=== PATIENT | female | born 1945 | race Caucasian/White ===

== ENCOUNTER 2023-03-25 15:21 | Inpatient (IN) | payer MEDICARE, OTHER ==
[~2023-03-25] VITALS: Ht 157.5 cm; Wt 37.2 kg
[2023-03-25 16:21] LABS: Basophils # (auto) 0.1 10 ^3/uL (0-0.2); Basophils % (auto) 0.8 % (0.0-2.0); Eosinophils # (auto) 0 10 ^3/uL (0-0.8); Eosinophils % (auto) 0.3 % (0.0-7.0); Hematocrit 36.3 % (36.0-46.0); Hemoglobin 11.7 g/dL (12.2-16.2); Lymphocytes # (auto) 0.7 10 ^3/uL (0.4-5.4); Lymphocytes % (auto) 7.1 % (10.0-50.0); Mean Corpuscular Hemoglobin 28.2 pg (28.0-32.0); Mean Corpuscular Hgb Conc. 32.3 g/dL (32.0-36.0); Mean Corpuscular Volume 87.4 fL (80.0-100.0); Monocytes # (auto) 0.3 10 ^3/uL (0-1.3); Monocytes % (auto) 3.4 % (0.0-12.0); Neutrophils # (auto) 9.2 10 ^3/uL (1.6-8.6); Neutrophils % (auto) 88.4 % (37.0-80.0); Nucleated Red Blood Cells % 0.1 %; Red Blood Cells 4.15 10^6/uL (4.0-5.20); White Blood Cell 10.4 10^3/uL (4.4-10.8)
[2023-03-25 16:42] LABS: Alanine Aminotransferase 11 U/L (7-40); Albumin 4.5 g/dL (3.2-4.8); Alkaline Phosphatase 62 U/L (46-116); Aspartate Aminotransferase 15 U/L (13-40); BUN/Creatinine Ratio 29.1 (10.0-20.0); Blood Urea Nitrogen 59 mg/dL (9-23); Calcium 9.3 mg/dL (8.5-10.1); Chloride 97 mmol/L (98-107); Glucose 315 mg/dL (74-106); Potassium 4.3 mmol/L (3.5-5.1); Sodium 132 mmol/L (136-145)
[2023-03-25 16:43] LABS: Bilirubin, Total 0.7 mg/dL (0.2-1.0); Total Protein 7.3 g/dL (5.7-8.2)
[2023-03-25 19:25] VITALS: PULSE 82; RESP 16; O2SAT 99
[2023-03-25] MEDS ORDERED: DEXTROSE (50%) 50ML SYRG IV PRN (19:45)
[2023-03-25] MEDS: SODIUM CHLORIDE 0.9% 1,000 ML IV SCH (20:10)
[2023-03-25] MEDS: ACCU-CHEK COMFORT CURVE STRIP VI SCH (21:49)
[2023-03-25] MEDS: InsuLIN REG 1unit/0.01ml Soln (100units/ml) SC SCH (21:49)
[2023-03-25] MEDS: MELATONIN 5 MG TAB PO SCH (21:50)
[2023-03-26] MEDS: SODIUM CHLORIDE 0.9% 1,000 ML IV SCH ×3 (04:05→16:07)
[2023-03-26 05:59] LABS: Basophils # (auto) 0.1 10 ^3/uL (0-0.2); Basophils % (auto) 0.8 % (0.0-2.0); Eosinophils # (auto) 0.2 10 ^3/uL (0-0.8); Eosinophils % (auto) 2.6 % (0.0-7.0); Hematocrit 29.6 % (36.0-46.0); Lymphocytes # (auto) 1.5 10 ^3/uL (0.4-5.4); Lymphocytes % (auto) 19.8 % (10.0-50.0); Mean Corpuscular Hemoglobin 29.1 pg (28.0-32.0); Mean Corpuscular Hgb Conc. 33.7 g/dL (32.0-36.0); Mean Corpuscular Volume 86.2 fL (80.0-100.0); Monocytes # (auto) 0.5 10 ^3/uL (0-1.3); Neutrophils # (auto) 5.4 10 ^3/uL (1.6-8.6); Neutrophils % (auto) 69.8 % (37.0-80.0); Red Blood Cells 3.44 10^6/uL (4.0-5.20); Red Cell Distribution Width 14.7 % (11.8-14.3); White Blood Cell 7.8 10^3/uL (4.4-10.8)
[2023-03-26 06:02] LABS: Albumin 3.7 g/dL (3.2-4.8); Alkaline Phosphatase 48 U/L (46-116); Anion Gap 8.4 (5-15); Aspartate Aminotransferase 12 U/L (13-40); Bilirubin, Total 0.6 mg/dL (0.2-1.0); Calcium 8.5 mg/dL (8.7-10.4); Carbon Dioxide 22.6 mmol/L (20-30); Chloride 105 mmol/L (98-107); Glucose 78 mg/dL (74-106); Potassium 3.5 mmol/L (3.5-5.1); Sodium 136 mmol/L (136-145); Total Protein 6.3 g/dL (5.7-8.2)
[2023-03-26 06:09] LABS: Alanine Aminotransferase < 9 U/L (7-40); Blood Urea Nitrogen 45 mg/dL (9-23)
[2023-03-26] MEDS: ACCU-CHEK COMFORT CURVE STRIP VI SCH ×4 (06:50→22:58)
[2023-03-26] MEDS: InsuLIN REG 1unit/0.01ml Soln (100units/ml) SC SCH ×4 (06:51→22:00)
[2023-03-26 08:00] VITALS: PULSE 67; RESP 15; O2SAT 97
[2023-03-26] MEDS ORDERED: PANTOPRAZOLE 40 MG TAB PO SCH (10:00)
[2023-03-26] MEDS: ENOXAPARIN SOD 30 MG/0.3 ML SYRINGE SC SCH (10:10)
[2023-03-26 11:50] VITALS: PULSE 76; RESP 12; O2SAT 100
[2023-03-26 12:19] LABS: Urine Bacteria FEW /hpf (None Seen); Urine Blood Negative /uL (Negative); Urine Clarity HAZY (Clear); Urine Color Yellow (Yellow); Urine Protein, UAD TRACE (Negative); Urine Specific Gravity 1.019 (1.001-1.035); Urine Urobilinogen Normal (Negative); Urine WBC 9 /hpf (0 - 5)
[2023-03-26] MEDS ORDERED: SODIUM CHLORIDE 0.9% 1,000 ML IV SCH (15:00)
[2023-03-26] MEDS ORDERED: cefTRIAXone 1GM/50ML D5W 50 ML IV ONE (16:30)
[2023-03-26 17:41] LABS: INR 1.09 (0.9-1.15); Partial Thromboplastin Time 31.8 SEC (24.5-34.5); Prothrombin Time 11.4 sec (9.3-11.8)
[2023-03-26 18:30] VITALS: BP 116/65; PULSE 64; RESP 16; TEMP 98.1; O2SAT 100
[2023-03-26] MEDS ORDERED: IBUP200C14 PO (20:55)
[2023-03-26 22:00] VITALS: BP 101/65; PULSE 91; RESP 18; TEMP 97.2; O2SAT 96
[2023-03-26] MEDS: MELATONIN 5 MG TAB PO SCH (22:55)
[2023-03-27 05:00] VITALS: BP 109/64; PULSE 66; RESP 16; TEMP 97.4; O2SAT 97
[2023-03-27] MEDS: SODIUM CHLORIDE 0.9% 1,000 ML IV SCH ×2 (05:57→11:54)
[2023-03-27] MEDS: ACCU-CHEK COMFORT CURVE STRIP VI SCH ×4 (06:05→23:05)
[2023-03-27] MEDS: InsuLIN REG 1unit/0.01ml Soln (100units/ml) SC SCH ×4 (06:06→22:00)
[2023-03-27 07:00] LABS: Anion Gap 7.8 (5-15); Carbon Dioxide 21.2 mmol/L (20-30); Chloride 111 mmol/L (98-107); Potassium 3.2 mmol/L (3.5-5.1); Sodium 140 mmol/L (136-145)
[2023-03-27 07:01] LABS: Basophils # (auto) 0.1 10 ^3/uL (0-0.2); Basophils % (auto) 0.8 % (0.0-2.0); Calcium 8.2 mg/dL (8.7-10.4); Eosinophils # (auto) 0.2 10 ^3/uL (0-0.8); Eosinophils % (auto) 2.8 % (0.0-7.0); Hematocrit 29.8 % (36.0-46.0); Hemoglobin 9.9 g/dL (12.2-16.2); Lymphocytes # (auto) 1.5 10 ^3/uL (0.4-5.4); Lymphocytes % (auto) 17.3 % (10.0-50.0); Mean Corpuscular Hemoglobin 28.9 pg (28.0-32.0); Mean Corpuscular Hgb Conc. 33.1 g/dL (32.0-36.0); Mean Corpuscular Volume 87.3 fL (80.0-100.0); Monocytes # (auto) 0.6 10 ^3/uL (0-1.3); Monocytes % (auto) 7.4 % (0.0-12.0); Neutrophils # (auto) 6.1 10 ^3/uL (1.6-8.6); Neutrophils % (auto) 71.7 % (37.0-80.0); Nucleated Red Blood Cells % 0.1 %; Red Blood Cells 3.41 10^6/uL (4.0-5.20); Red Cell Distribution Width 14.7 % (11.8-14.3); White Blood Cell 8.4 10^3/uL (4.4-10.8)
[2023-03-27 07:06] LABS: Glucose 82 mg/dL (74-106)
[2023-03-27 07:07] LABS: BUN/Creatinine Ratio 26.3 (10.0-20.0)
[2023-03-27 07:17] LABS: Blood Urea Nitrogen 26 mg/dL (9-23)
[2023-03-27 08:00] VITALS: BP 115/70; PULSE 82; RESP 14; TEMP 98.5; O2SAT 99
[2023-03-27] MEDS ORDERED: POTASSIUM EFFERVESENT TAB 25 MEQ PO ONE (09:00)
[2023-03-27] MEDS: cefTRIAXone 1GM/50ML D5W 50 ML IV SCH (11:54)
[2023-03-27] MEDS: ENOXAPARIN SOD 30 MG/0.3 ML SYRINGE SC SCH (11:54)
[2023-03-27 12:00] VITALS: BP 130/64; PULSE 69; RESP 16; TEMP 98.1; O2SAT 100
[2023-03-27 16:00] VITALS: BP 110/59; PULSE 82; RESP 16; TEMP 98.7; O2SAT 100
[2023-03-27] MEDS ORDERED: CEPH250C PO (16:54)
[2023-03-27 19:36] VITALS: BP 115/62; PULSE 74; RESP 19; TEMP 98; O2SAT 100
[2023-03-27 22:00] VITALS: BP 110/58; PULSE 76; RESP 17; TEMP 98.4; O2SAT 100
[2023-03-27] MEDS: MELATONIN 5 MG TAB PO SCH (23:05)
[2023-03-28 05:00] VITALS: BP 127/77; PULSE 74; RESP 18; TEMP 97.8; O2SAT 100
[2023-03-28] MEDS: ACCU-CHEK COMFORT CURVE STRIP VI SCH ×2 (06:13→11:11)
[2023-03-28] MEDS: InsuLIN REG 1unit/0.01ml Soln (100units/ml) SC SCH ×2 (06:13→11:11)
[2023-03-28] MEDS: SODIUM CHLORIDE 0.9% 1,000 ML IV SCH (07:45)
[2023-03-28 08:05] VITALS: RESP 19; O2SAT 100
[2023-03-28 08:30] VITALS: BP 115/62; PULSE 74; RESP 19; TEMP 98
[2023-03-28 09:00] VITALS: BP 115/62; PULSE 74; RESP 19; TEMP 98; O2SAT 100
[2023-03-28] MEDS: cefTRIAXone 1GM/50ML D5W 50 ML IV SCH (09:00)
[2023-03-28] MEDS ORDERED: ENOXAPARIN SOD 30 MG/0.3 ML SYRINGE SC SCH (10:00)
[2023-03-28 11:26] LABS: Basophils # (auto) 0.1 10 ^3/uL (0-0.2); Basophils % (auto) 1.1 % (0.0-2.0); Eosinophils # (auto) 0.1 10 ^3/uL (0-0.8); Eosinophils % (auto) 1.6 % (0.0-7.0); Hematocrit 30.2 % (36.0-46.0); Hemoglobin 9.8 g/dL (12.2-16.2); Lymphocytes # (auto) 1.3 10 ^3/uL (0.4-5.4); Lymphocytes % (auto) 15.5 % (10.0-50.0); Mean Corpuscular Hemoglobin 28.8 pg (28.0-32.0); Mean Corpuscular Hgb Conc. 32.3 g/dL (32.0-36.0); Mean Corpuscular Volume 89.1 fL (80.0-100.0); Monocytes # (auto) 0.6 10 ^3/uL (0-1.3); Monocytes % (auto) 6.8 % (0.0-12.0); Neutrophils # (auto) 6.2 10 ^3/uL (1.6-8.6); Red Blood Cells 3.39 10^6/uL (4.0-5.20); Red Cell Distribution Width 15.5 % (11.8-14.3); White Blood Cell 8.2 10^3/uL (4.4-10.8)
[2023-03-28 11:30] LABS: Anion Gap 4.9 (5-15); Calcium 8.3 mg/dL (8.5-10.1); Carbon Dioxide 24.1 mmol/L (20-30)
[2023-03-28 11:35] LABS: BUN/Creatinine Ratio 17.8 (10.0-20.0); Blood Urea Nitrogen 13 mg/dL (9-23)
[2023-03-28 11:47] LABS: Chloride 112 mmol/L (98-107); Potassium 4.2 mmol/L (3.5-5.1); Sodium 140 mmol/L (136-145)
[2023-03-28 11:56] LABS: Glucose 91 mg/dL (74-106)
== END 2023-03-28 14:25 | disposition home or self-care (01) | DRG 640 ==
LOC: ER 15:21 → OVERFLOW 19:42 → EAST 03-26 18:35
PROVIDERS: ADMIT Internal Medicine; ATTEND Student in an Organized Health Care Education/Training Program
DX: R62.7 Adult failure to thrive (principal); E43 Unspecified severe protein-calorie malnutrition; N17.0 Acute kidney failure with tubular necrosis; N39.0 Urinary tract infection, site not specified; Z68.1 Body mass index [BMI] 19.9 or less, adult; E86.0 Dehydration; E11.65 Type 2 diabetes mellitus with hyperglycemia; F03.90 Unspecified dementia, unspecified severity, without behavioral disturbance, psychotic disturbance, mood disturbance, and anxiety; R32 Unspecified urinary incontinence; E87.6 Hypokalemia; F20.9 Schizophrenia, unspecified; D64.9 Anemia, unspecified; Z86.73 Personal history of transient ischemic attack (TIA), and cerebral infarction without residual deficits
CPT/HCPCS: 36415; 70450; 71045; 72100; 73502; 80048; 80053; 81001; 82550; 82607; 82962; 83036; 84443; 84484; 85025; 85610; 85730; 87086; 93306; 93886; 97110; 97116; 97163; 97530; G0378; J0696; J1815